=== PATIENT | female | born 1950 | race Hispanic/Latino ===

== ENCOUNTER 2019-10-18 14:58 | Observation (INO) | payer MEDICARE, OTHER ==
[~2019-10-18] VITALS: Ht 157.5 cm; Wt 73.9 kg
--- NOTE | 2019-10-18 15:11 | Emergency Department Note ---
History of Present Illnes History of Present Illness History of Present Illness This is a 69 year old female with non-radiating substernal CP started yesterday. Seen at Dr [facility] yesterday, patient was advised to come to the ED for evaluation. . Historian: Patient, Family Member Arrival Mode: Car History limited by: language barrier Night Filler Required: Yes Onset (how long ago): day(s) Location: substernal Radiation: Reports non-radiation Onset quality: gradual Duration (how long): day(s) Timing of current episode: constant Progression: unchanged Chronicity: new Context: Denies recent illness, Denies recent surgery, Denies recent immobilization, Denies recent travel, Denies trauma/injury, Denies new medications, Denies hx of DVT/PE, Denies non-compliance w/ medications, Denies other Relieving factors: none Exacerbating factors: none Associated symptoms: Reports chest pain Treatments prior to arrival: none Past Medical/Family History Physician Review I have reviewed the patient's past medical and family history. Any updates have been documented here. Past Medical History Recent Fever: No Clinical Suspicion of Infectio: No New/Unexplained Change in Ment: No Past Medical History: Hypertension, Hyperlipedemia Past Surgical History: Cholecysctectomy, Knee Replacement Social History Smoking Cessation: Never Smoker Alcohol Use: None Any Illegal Drug Use: No Review of Systems Review of Systems Constitutional: Reports no symptoms EENTM: Reports no symptoms Cardiovascular: Reports chest pain Respiratory: Reports dyspnea Gastrointestinal: Reports no symptoms Genitourinary: Reports no symptoms Musculoskeletal: Reports no symptoms Integumentary: Reports no symptoms Neurological: Reports no symptoms Psychological: Reports no symptoms Endocrine: Reports no symptoms Hematological/Lymphatic: Reports no symptoms Physical Exam Related Data Allergies: Coded Allergies: No Known Drug Allergies (Verified Allergy, Unknown, 10/18/19) Triage Vital Signs Date Time Temp Pulse Resp B/P (MAP) Pulse Ox O2 Delivery O2 Flow Rate FiO2 10/19/19 12:00 98.7 78 20 116/62 (80) 98 10/19/19 08:45 Room Air Vital signs reviewed: Yes Physical Exam CONSTITUTIONAL Constitutional: Present obese HENT HENT: Present normocephalic, Present atraumatic, Present oropharynx clear/moist, Present nose normal HENT L/R: Present left ext ear normal, Present right ext ear normal EYES Eyes: Reports PERRL, Reports conjunctivae normal NECK Neck: Present ROM normal PULMONARY Pulmonary: Present effort normal, Present breath sounds normal CARDIOVASCULAR Cardiovascular: Present regular rhythm, Present heart sounds normal, Present capillary refill normal, Present normal rate GASTROINTESTINAL Abdominal: Present soft, Present nontender, Present bowel sounds normal GENITOURINARY Genitourinary: Present exam deferred SKIN Skin: Present warm, Present dry MUSCULOSKELETAL Musculoskeletal: Present ROM normal NEUROLOGICAL Neurological: Present alert, Present oriented x 3, Present no gross motor or sensory deficits PSYCHOLOGICAL Psychological: Present mood/affect normal, Present judgement normal Results Laboratory Lab results reviewed: Yes Laboratory comments Laboratory Tests Test 10/18/19 15:34 White Blood Count 10.07 x10e3/uL (4.8-10.8) Red Blood Count 4.23 x10e6/uL (3.6-5.1) Hemoglobin 12.5 g/dL (12.0-16.0) Hematocrit 38.8 % (34.2-44.1) Mean Corpuscular Volume 91.7 fL (81-99) Mean Corpuscular Hemoglobin 29.6 pg (28-32) Mean Corpuscular Hemoglobin Concent 32.2 g/dL (31-35) Red Cell Distribution Width 13.1 % (11.7-14.4) Platelet Count 319 x10e3/uL (140-360) Neutrophils (%) (Auto) 71.1 % (38.7-80.0) Lymphocytes (%) (Auto) 19.6 % (18.0-39.1) Monocytes (%) (Auto) 6.7 % (4.4-11.3) Eosinophils (%) (Auto) 1.0 % (0.0-6.0) Basophils (%) (Auto) 0.7 % (0.0-1.0) Neutrophils # (Auto) 7.2 (2.1-6.9) Lymphocytes # (Auto) 2.0 (1.0-3.2) Monocytes # (Auto) 0.7 (0.2-0.8) Eosinophils # (Auto) 0.1 (0.0-0.4) Basophils # (Auto) 0.1 (0.0-0.1) Absolute Immature Granulocyte (auto 0.09 x10e3/uL (0-0.1) Sodium Level 142 mmol/L (136-145) Potassium Level 4.0 mmol/L (3.5-5.1) Chloride Level 108 mmol/L (98-107) Carbon Dioxide Level 26 mmol/L (22-29) Anion Gap 12.0 mmol/L (8-16) Blood Urea Nitrogen 14 mg/dL (7-26) Creatinine 1.06 mg/dL (0.57-1.11) Estimat Glomerular Filtration Rate 51 ML/MIN (60-) BUN/Creatinine Ratio 13 (6-25) Glucose Level 159 mg/dL (74-118) Calcium Level 9.4 mg/dL (8.4-10.2) Total Bilirubin 0.6 mg/dL (0.2-1.2) Aspartate Amino Transf (AST/SGOT) 18 IU/L (5-34) Alanine Aminotransferase (ALT/SGPT) 24 IU/L (0-55) Alkaline Phosphatase 53 IU/L (40-150) Creatine Kinase 103 IU/L (29-168) Creatine Kinase MB 1.70 ng/mL (0-5.0) Troponin I 0.010 ng/mL (0-0.300) B-Type Natriuretic Peptide 43.0 pg/mL (0-100) Total Protein 7.6 g/dL (6.5-8.1) Albumin 4.0 g/dL (3.5-5.0) Globulin 3.6 g/dL (2.3-3.5) Albumin/Globulin Ratio 1.1 (0.8-2.0) Imaging Imaging results reviewed: Yes Impressions [place] [id number] Patient Name: DONNY AUGUST MR #: [id number] : 1950 Age/Sex: 69/F Req #: [id number] Adm Physician: Ordered by: YAMIL CLINTON DO Report #: [id number] Location: ER Room/Bed: Procedure: [id number] CT/CT CHEST W Exam Date: 10/18/19 Exam Time: 1646 REPORT STATUS: Signed EXAM: CT Chest WITH contrast 10/18/2019 4:46 PM INDICATION: Chest pain concerning for pulmonary embolism. COMPARISON: None TECHNIQUE: Chest was scanned utilizing a multidetector helical scanner from the lung apex through the level of the adrenal glands with administration of IV contrast. Coronal and sagittal reformations were obtained. Routine protocol was performed. IV CONTRAST: 100 mL of Omnipaque 300 COMPLICATIONS: None RADIATION DOSE: Total DLP: 511.66 mGy*cm Estimated effective dose: (DLP x 0.014 x size factor) mSv CTDIvol has been reviewed. It is below the limits set by the Radiation Protocol Committee (RPC). Dose modulation, iterative reconstruction, and/or weight based adjustment of the mA/kV was utilized to reduce the radiation dose to as low as reasonably achievable. FINDINGS: LINES/ TUBES: None. VASCULAR: There is no evidence of pulmonary embolism within the main and segmental pulmonary arteries. Visualization of the subsegmental pulmonary arteries are limited by respiratory motion artifact. The main pulmonary artery has normal caliber measuring 3.1 cm. LUNGS/AIRWAYS/PLEURA: The central airways are patent and the trachea is midline. There is bibasilar atelectasis. No focal consolidation, pleural effusion or pneumothorax. HEART AND MEDIASTINUM: The thyroid gland is normal. No mediastinal, hilar or axillary lymphadenopathy. The heart is normal in size. There is pericardial thickening particularly on the left measuring up to 1.4 cm, compatible with pericardial effusion. UPPER ABDOMEN: The liver is diffusely hypodense, compatible with hepatic steatosis. Status post cholecystectomy. The remainder of the imaged abdomen is unremarkable BONES: There is multilevel degenerative disease of the spine with no suspicious osteoblastic or osteoblastic lesions. No acute fracture or dislocation. SOFT TISSUES: Unremarkable. IMPRESSION: 1. No evidence of pulmonary embolism. No focal consolidation, pleural effusion or pneumothorax. 2. Pericardial effusion of indeterminate etiology. 3. Hepatic steatosis. Signed by: Iesha Bishop MD on 10/18/2019 5:24 PM Dictated By: IESHA BISHOP MD 23 Transcribed By: JOVANY on 10/18/191723 COPY TO: YAMIL CLINTON DO~ Procedures 12 Lead ECG Interpretation ECG Interpretation : ECG: ECG 1 Night Filler: Interpreted by ED physician Date: Oct 18, 2019 Time: 15:14 Prior ECG tracings: reviewed Rhythm: sinus rhythm Conduction: complete RBBB ST segments normal: Yes T wave inversion: V2, V3, V4 T waves flattening: V5, V6 Assessment & Plan Medical Decision Making MDM 69 yof presents with CP . ACS, PE, costocondritis, Chest wall pain, and pneumothorax considered. labs, imaging and EKG reviewed . Plan to Assessment & Plan Final Impression: (1) Chest pain (2) Pericardial effusion Depart Disposition: ADMITTED Last Vital Signs Date Time Temp Pulse Resp B/P (MAP) Pulse Ox O2 Delivery O2 Flow Rate FiO2 10/19/19 12:00 98.7 78 20 116/62 (80) 98 10/19/19 08:45 Room Air Home Meds Reported Medications Quetiapine Fumarate (Quetiapine Fumarate ER) 50 Mg Tab.er.24h, 50 MG PO DAILY 10/18/19 Hydrochlorothiazide (HYDROCHLOROTHIAZIDE) 25 Mg Tablet, 12.5 MG PO DAILY, #30 TAB 10/18/19 Losartan Potassium (LOSARTAN POTASSIUM) 100 Mg Tablet, 100 MG PO DAILY, TAB 10/18/19 Fenofibrate Nanocrystallized (FENOFIBRATE) 145 Mg Tablet, 145 MG PO DAILY 10/18/19 Amlodipine Besylate (AMLODIPINE BESYLATE) 10 Mg Tablet, 10 MG PO DAILY, #30 TAB 10/18/19 Medications in the ED Aspirin 81 mg PRN ONCE PO ; Start 10/18/19 at 15:15; Stop 10/18/19 at 15:16; Status UNV YAMIL CLINTON DO Oct 18, 2019 15:11
[2019-10-18] MEDS ORDERED: ASPIRIN 81 MG CHEW TAB PO ONE (15:15)
[2019-10-18 15:45] LABS: BASOPHILS # (AUTO) 0.1 (0.0-0.1); BASOPHILS % 0.7 % (0.0-1.0); EOSINOPHILS # (AUTO) 0.1 (0.0-0.4); HEMATOCRIT 38.8 % (34.2-44.1); HEMOGLOBIN 12.5 g/dL (12.0-16.0); LYMPHOCYTES % 19.6 % (18.0-39.1); MEAN CORPUSCULAR HEMOGLOBIN 29.6 pg (28-32); MEAN CORPUSCULAR HGB CONC 32.2 g/dL (31-35); MEAN CORPUSCULAR VOLUME 91.7 fL (81-99); MONOCYTES # (AUTO) 0.7 (0.2-0.8); MONOCYTES % 6.7 % (4.4-11.3); NEUTROPHILS # (AUTO) 7.2 (2.1-6.9); NEUTROPHILS % 71.1 % (38.7-80.0); PLATELET COUNT 319 x10e3/uL (140-360); RED BLOOD COUNT 4.23 x10e6/uL (3.6-5.1); RED CELL DISTRIBUTION WIDTH 13.1 % (11.7-14.4)
[2019-10-18 16:00] LABS: ALBUMIN/GLOBULIN RATIO 1.1 (0.8-2.0); CALCIUM 9.4 mg/dL (8.4-10.2); CREATININE, SERUM 1.06 mg/dL (0.57-1.11)
[2019-10-18 16:06] LABS: CREATINE KINASE MB 1.7 ng/mL (0-5.0)
[2019-10-18] MEDS ORDERED: SODIUM CHLORIDE 0.9% 50ML 50 ML ONE (16:38)
[2019-10-18] MEDS ORDERED: IOPAMIDOL 370 MG/ML 200 ML INFUS..BTL INJ ONE (16:38)
[2019-10-18] MEDS ORDERED: SODIUM CHLORIDE 0.9% 1000ML 1,000 ML IV STA (16:49)
[2019-10-18] MEDS ORDERED: MORPHINE SULFATE INJ 4 MG/ML INJ 1ML IV PRN (17:00)
[2019-10-18] MEDS ORDERED: ONDANSETRON HCL INJ 2MG/ML 2ML 2 MG/ML VIAL IV PRN (17:00)
--- NOTE | 2019-10-18 17:27 | Diagnostic Imaging Report ---
EXAM: CT Chest WITH contrast 10/18/2019 4:46 PM INDICATION: Chest pain concerning for pulmonary embolism. COMPARISON: None TECHNIQUE: Chest was scanned utilizing a multidetector helical scanner from the lung apex through the level of the adrenal glands with administration of IV contrast. Coronal and sagittal reformations were obtained. Routine protocol was performed. IV CONTRAST: 100 mL of Omnipaque 300 COMPLICATIONS: None RADIATION DOSE: Total DLP: 511.66 mGy*cm Estimated effective dose: (DLP x 0.014 x size factor) mSv CTDIvol has been reviewed. It is below the limits set by the Radiation Protocol Committee (RPC). Dose modulation, iterative reconstruction, and/or weight based adjustment of the mA/kV was utilized to reduce the radiation dose to as low as reasonably achievable. FINDINGS: LINES/ TUBES: None. VASCULAR: There is no evidence of pulmonary embolism within the main and segmental pulmonary arteries. Visualization of the subsegmental pulmonary arteries are limited by respiratory motion artifact. The main pulmonary artery has normal caliber measuring 3.1 cm. LUNGS/AIRWAYS/PLEURA: The central airways are patent and the trachea is midline. There is bibasilar atelectasis. No focal consolidation, pleural effusion or pneumothorax. HEART AND MEDIASTINUM: The thyroid gland is normal. No mediastinal, hilar or axillary lymphadenopathy. The heart is normal in size. There is pericardial thickening particularly on the left measuring up to 1.4 cm, compatible with pericardial effusion. UPPER ABDOMEN: The liver is diffusely hypodense, compatible with hepatic steatosis. Status post cholecystectomy. The remainder of the imaged abdomen is unremarkable BONES: There is multilevel degenerative disease of the spine with no suspicious osteoblastic or osteoblastic lesions. No acute fracture or dislocation. SOFT TISSUES: Unremarkable. IMPRESSION: 1. No evidence of pulmonary embolism. No focal consolidation, pleural effusion or pneumothorax. 2. Pericardial effusion of indeterminate etiology. 3. Hepatic steatosis. Signed by: Jose Martin Cannon MD on 10/18/2019 5:24 PM
--- NOTE | 2019-10-18 19:09 | NUR ---
2nd attempt at calling report performed.
[2019-10-18] MEDS ORDERED: ASPIRIN 81 MG CHEW TAB ONE (19:45)
[2019-10-18 20:30] VITALS: BP 117/58
[2019-10-18 20:38] VITALS: BP 112/58
--- NOTE | 2019-10-18 20:49 | NUR ---
Patient received via stretcher from ER. AAO x 3. Patient had no complaints of pain. Respirations even and non-labored. Admission history obtained. Initial physical assessment performed. Telemetry in place. Patient oriented to room, call light and plan of care. Patient instructed to call for assistance when needed. Call light within reach.
[2019-10-18 21:00] VITALS: BP 112/58
--- NOTE | 2019-10-18 21:00 | NUR ---
Dr. Alejandro Devries paged regarding "Routine Consult". Reason: Chest Pain. Awaiting call back.
[2019-10-18] MEDS ORDERED: ZOLPIDEM TARTRATE 5 MG TAB PO PRN (22:15)
[2019-10-18] MEDS ORDERED: DOCUSATE SODIUM 100 MG CAP PO PRN (22:15)
[2019-10-18] MEDS ORDERED: ACETAMINOPHEN 325 MG TAB PO PRN (22:15)
[2019-10-18 22:26] LABS: CHOL/HDL RATIO 4.9 (3.0-3.6)
[2019-10-18] MEDS ORDERED: QUETIAPINE FUMA50 M1 PO (22:53)
[2019-10-18] MEDS ORDERED: AMLODIPINE BESY10 MG PO (22:53)
[2019-10-18] MEDS ORDERED: HYDROCHLOROTHIA25 MG PO (22:53)
[2019-10-18] MEDS ORDERED: LOSARTAN POTAS100 MG PO (22:53)
[2019-10-18] MEDS ORDERED: FENOFIBRATE145 MG PO (22:53)
--- NOTE | 2019-10-18 23:25 | NUR ---
Blood specimen sent to lab for analysis of cardiac enzymes.
[2019-10-19] VITALS (8 sets, daily range): BP systolic 110–125; BP diastolic 50–76
[2019-10-19 00:17] LABS: CREATINE KINASE MB 1.5 ng/mL (0-5.0)
--- NOTE | 2019-10-19 05:30 | NUR ---
H&P cc: chest pain HPI: 69yoF, PCP , developed chestpain in substernal region for 10 days; no sob/MCMULLEN/fever/N/V/D?. PMH: HTN, HTG, PSHx: cholecystecotmy, left knee Allergies; see emr Fh/SH; ; no cigs Meds; see MAR ROS: no f/c/s/N/V/D/MCMULLEN/sob/skin rash/dizziness/confusion/vision changes v/s; revd PE tired appearing anicteric ns1s2 mod bs soft nt nd; no chest wall tenderness no edema skin dry n. affect a&ox3; ferguson labs/meds revd A/P: Chest pain- CT shows pericardial effusion Pericardial effusion- check echo LUPILLO vs CKD- hold ARB PreDM- hba1c 6.4 Overweight- 1/2 portion sizes outpt BMI 29.8- as above Prop; lovenox; pepcid dispo: f/u cardio; f/u echo. Davey Lopez MD, PHD.
[2019-10-19 05:55] LABS: BASOPHILS # (AUTO) 0.1 (0.0-0.1); BASOPHILS % 0.6 % (0.0-1.0); EOSINOPHILS # (AUTO) 0.2 (0.0-0.4); EOSINOPHILS % 1.5 % (0.0-6.0); HEMATOCRIT 38.7 % (34.2-44.1); HEMOGLOBIN 12.4 g/dL (12.0-16.0); LYMPHOCYTES # (AUTO) 3.4 (1.0-3.2); LYMPHOCYTES % 27.8 % (18.0-39.1); MEAN CORPUSCULAR HEMOGLOBIN 29.5 pg (28-32); MEAN CORPUSCULAR VOLUME 91.9 fL (81-99); MONOCYTES # (AUTO) 0.7 (0.2-0.8); MONOCYTES % 5.7 % (4.4-11.3); NEUTROPHILS # (AUTO) 7.9 (2.1-6.9); NEUTROPHILS % 63.7 % (38.7-80.0); PLATELET COUNT 334 x10e3/uL (140-360); RED BLOOD COUNT 4.21 x10e6/uL (3.6-5.1); RED CELL DISTRIBUTION WIDTH 12.8 % (11.7-14.4)
[2019-10-19 06:27] LABS: ALANINE AMINOTRANSFERASE 21 IU/L (0-55); ALBUMIN 3.8 g/dL (3.5-5.0); ALBUMIN/GLOBULIN RATIO 1.2 (0.8-2.0); ALKALINE PHOSPHATASE 52 IU/L (40-150); ANION GAP 11.6 mmol/L (8-16); BLOOD UREA NITROGEN 14 mg/dL (7-26); BUN/CREATININE RATIO 16 (6-25); CARBON DIOXIDE 23 mmol/L (22-29); CHLORIDE 108 mmol/L (98-107); CREATININE, SERUM 0.89 mg/dL (0.57-1.11); EST GLOMERULAR FILTRATION RATE > 60 ML/MIN (60-); GLUCOSE 126 mg/dL (74-118); POTASSIUM 3.6 mmol/L (3.5-5.1); SODIUM 139 mmol/L (136-145)
[2019-10-19 06:52] LABS: CREATINE KINASE 88 IU/L (29-168)
--- NOTE | 2019-10-19 07:00 | NUR ---
Patient resting comfortably. No acute distress noted. Walking rounds done. Bedside report given to oncoming nurse.
[2019-10-19] MEDS: FAMOTIDINE 20 MG TAB PO SCH ×2 (07:30→16:30)
[2019-10-19] MEDS ORDERED: QUETIAPINE FUMARATE 50 MG PO SCH (09:00)
[2019-10-19] MEDS: ASPIRIN 325 MG TAB PO SCH (09:24)
[2019-10-19] MEDS: QUETIAPINE FUMARATE 25 MG TAB PO SCH (09:25)
[2019-10-19] MEDS: AMLODIPINE BESYLATE 10 MG TAB PO SCH (09:25)
[2019-10-19] MEDS: FENOFIBRATE 145 MG TAB PO SCH (09:25)
[2019-10-19] MEDS: ENOXAPARIN SOD INJ 40 MG/0.4 ML SYR SC SCH (16:44)
--- NOTE | 2019-10-19 19:18 | NUR ---
report given to oncoming nurse walking rounds complete.
--- NOTE | 2019-10-19 22:46 | NUR ---
Cardiology Consult Dictation# [id number]
[2019-10-20] VITALS (7 sets, daily range): BP systolic 100–138; BP diastolic 55–69
--- NOTE | 2019-10-20 03:42 | Consultation ---
DATE OF CONSULTATION: 10/19/2019 Cardiology Consultation REQUESTING PHYSICIAN: Davey Lopez MD. REASON FOR CONSULTATION: Chest pain. HISTORY OF PRESENT ILLNESS: This is a 69-year-old woman with history of hypertension and hyperlipidemia, who presents with complaints of chest pain for the last 10 days. She describes it as central substernal pain up to 8/10 in severity. The pain did not radiate and was not associated with shortness of breath, nausea, or diaphoresis. The pain would occur off and on, lasting approximately minutes, occurring approximately twice a day. She did not notice any aggravating factors, but noted it was better after being given aspirin in the ER. She denies any edema, orthopnea, or PND. Denies any fever, chills, sick contacts, or recent travel. In the ER, CT of the chest did not reveal any evidence of PE, but she was found to have a pericardial effusion. Cardiology is consulted for further evaluation. REVIEW OF SYSTEMS: Negative except as per HPI. PAST MEDICAL HISTORY: 1. Hypertension. 2. Hyperlipidemia. PAST SURGICAL HISTORY: 1. Cholecystectomy. 2. Tubal ligation. 3. Knee surgery. ALLERGIES: PLEASE SEE EMR. MEDICATIONS: Please see medication list. SOCIAL HISTORY: No tobacco, alcohol, or illicit drugs. FAMILY HISTORY: Pertinent for father with myocardial infarction. PHYSICAL EXAMINATION: VITAL SIGNS: Temperature 99.4 degrees, pulse 65, respiratory rate 20, blood pressure 112/57, and oxygen saturation 97% on room air. GENERAL: Elderly woman, in no acute distress. Awake and alert. HEENT: Normocephalic, atraumatic. Pupils equal. No scleral icterus. NECK: Supple. No thyroid or cervical lymphadenopathy. No carotid bruits. LUNGS: Clear to auscultation bilaterally. No wheezes or crackles. CARDIOVASCULAR: Normal rate, regular rhythm. No murmur. Normal S1 and S2. ABDOMEN: Soft, nontender. EXTREMITIES: No edema. NEUROLOGIC: Nonfocal exam. LABORATORY DATA: Sodium 139, potassium 3.6, chloride 108, CO2 of 23, BUN 14, and creatinine 0.89. Troponin less than 0.001. Triglycerides 196, cholesterol 187, LDL 110, HDL 38. WBC 12.34, hemoglobin 12.4, hematocrit 38.7, and platelets 334. EKG; normal sinus rhythm, right bundle-branch block. IMPRESSION: 1. Chest pain. 2. Pericardial effusion. 3. Acute kidney injury, improved. 4. Hypertension. 5. Hyperlipidemia. 6. Diabetes mellitus. RECOMMENDATIONS: The patient ruled out for myocardial infarction with serial cardiac biomarkers. Echocardiogram was reviewed. The patient does have a small pericardial effusion near the left ventricle, but there is normal LVEF with impaired relaxation. No significant valvular abnormalities. CRP is ordered and is pending. Blood pressure is acceptable for her age. Continue current cardiac medications. COVID-19 test is pending. If negative, plan to proceed with nuclear stress test in the morning. Otherwise, the patient can be discharged to follow up with outpatient ischemic evaluation. Thank you for this consult. We will continue to follow. Sandra Hearn MD ABS/MODL /[id number]
--- NOTE | 2019-10-20 06:34 | NUR ---
IM- progress note O/N see below ROS: no f/c/s/N/V/D/MCMULLEN/sob/skin rash/dizziness/confusion/vision changes v/s; revd PE tired appearing anicteric ns1s2 mod bs soft nt nd; no chest wall tenderness no edema skin dry n. affect a&ox3; ferguson labs/meds revd A/P: Chest pain- CT shows pericardial effusion Pericardial effusion- check echo LUPILLO vs CKD- hold ARB PreDM- hba1c 6.4 Overweight- 1/2 portion sizes outpt BMI 29.8- as above Prop; lovenox; pepcid dispo: f/u cardio; f/u echo. 7-15 f/u stress test and echo Davey Lopez MD, PHD.
--- NOTE | 2019-10-20 07:00 | NUR ---
Waking rounds done. Bed-side report given to oncoming nurse. No acute distress noted. Call light within reach.
[2019-10-20] MEDS: FAMOTIDINE 20 MG TAB PO SCH ×3 (07:30→17:56)
[2019-10-20] MEDS: AMLODIPINE BESYLATE 10 MG TAB PO SCH (08:51)
[2019-10-20] MEDS: ASPIRIN 325 MG TAB PO SCH (08:51)
[2019-10-20] MEDS: FENOFIBRATE 145 MG TAB PO SCH (08:52)
[2019-10-20] MEDS: QUETIAPINE FUMARATE 25 MG TAB PO SCH (08:52)
[2019-10-20] MEDS ORDERED: ONDANSETRON HCL 4 MG ORAL DISINTEGRATING TAB PO PRN (13:15)
[2019-10-20] MEDS ORDERED: REGADENOSON 0.4 MG/5 ML SYR IV ONE (14:57)
--- NOTE | 2019-10-20 15:19 | Progress Note ---
DATE: 10/20/2019 Cardiology Progress note SUBJECTIVE: The patient denies chest pain or shortness of breath. She is pending stress test today. OBJECTIVE: VITAL SIGNS: Temperature 98.4 degrees, pulse 63, respiratory rate 20, blood pressure 138/65, and oxygen saturation 97% on room air. GENERAL: An elderly woman, in no acute distress. Awake and alert. LUNGS: Clear to auscultation bilaterally. No wheezes or crackles. CARDIOVASCULAR: Normal rate. Regular rhythm. No murmur. Normal S1, S2. ABDOMEN: Soft, nontender. EXTREMITIES: No edema. CARDIAC MEDICATIONS: Enoxaparin 40 mg subcu daily, fenofibrate 145 mg p.o. daily, amlodipine 10 mg p.o. daily, and aspirin 81 mg p.o. daily. LABORATORY DATA: None today. TELEMETRY: Telemetry was personally reviewed and interpreted, revealing sinus bradycardia. IMPRESSION: 1. Chest pain. 2. Pericardial effusion. 3. Acute kidney injury, improved. 4. Hypertension. 5. Hyperlipidemia. 6. Diabetes mellitus. RECOMMENDATIONS: The patient is ruled out for myocardial infarction with serial cardiac biomarkers. Echocardiogram has normal LVEF with impaired relaxation. No significant valvular abnormalities are present, but she does have a small pericardial effusion near the left ventricle. CRP has been ordered and remains pending. Blood pressure is acceptable for age. Plan to proceed with ischemic evaluation today once isotope is available. Thank you for this consult. We will continue to follow. Sandra Hearn MD ABS/MODL /[id number]
--- NOTE | 2019-10-20 17:55 | NUR ---
Spoke with Dr. Hearn and says that from her standpoint the patient is okay to discharge.
[2019-10-20] MEDS: ENOXAPARIN SOD INJ 40 MG/0.4 ML SYR SC SCH (17:57)
--- NOTE | 2019-10-20 19:15 | NUR ---
Patient received lying in bed. AAO x 3. Patient had no complaints of pain. Respirations even and non-labored. Safety measures in place. Patient instructed to call for assistance when needed. Call light within reach.
[2019-10-21] VITALS: BP 102/50
[2019-10-21 04:00] VITALS: BP 123/64
--- NOTE | 2019-10-21 06:23 | NUR ---
D/C summary Principal Dx: Atypical Chest pain- CT shows pericardial effusion Pericardial effusion- check echo LUPILLO - resolved; PreDM- hba1c 6.4 Overweight- 1/2 portion sizes outpt BMI 29.8- as above SEcondary Ddx: Prop; lovenox; pepcid dispo: f/u cardio; f/u echo. 7-15 f/u stress test and echo 7-16 stress test negative; echo normal; asymptomatic; d/c home and f/u with cardiology D/c home stable f/u pcp 2 days and cardiology 1 week d/c>35mins Davey Lopez MD, PHD.
--- NOTE | 2019-10-21 06:30 | NUR ---
Dr. Lopez here to see patient. However, he stated there are no notes from MD confirming cardiac clearance. Dr. Connor paged. Awaiting call back
[2019-10-21] MEDS ORDERED: ASPIRIN325 MG PO (06:38)
--- NOTE | 2019-10-21 07:00 | NUR ---
Walking rounds done. Patient resting comfortably. Shift report given to oncoming nurse.
[2019-10-21 07:45] VITALS: BP 121/61
[2019-10-21 09:35] VITALS: BP 121/61
[2019-10-21] MEDS: QUETIAPINE FUMARATE 25 MG TAB PO SCH (11:09)
[2019-10-21] MEDS: FAMOTIDINE 20 MG TAB PO SCH (11:09)
[2019-10-21] MEDS: AMLODIPINE BESYLATE 10 MG TAB PO SCH (11:09)
[2019-10-21] MEDS: ASPIRIN 325 MG TAB PO SCH (11:09)
[2019-10-21] MEDS: FENOFIBRATE 145 MG TAB PO SCH (11:10)
[2019-10-21 11:35] VITALS: BP 124/63
--- NOTE | 2019-10-21 14:00 | NUR ---
Discharge education teaching given with the daughter on the phone. Verbalized understanding. Discharge packet given. Respiration even and unlabored . PIV to left AC removed, catheter tip intact, no bleeding noted. Awaiting for parts picker.
--- NOTE | 2019-10-21 14:10 | Progress Note ---
DATE: 10/21/2019 Cardiology Progress Note SUBJECTIVE: The patient denies chest pain or shortness of breath. OBJECTIVE: VITAL SIGNS: Temperature 98.3 degrees, pulse 87, respiratory rate 20, blood pressure 112/62, and oxygen saturation 95%. GENERAL: Awake, alert, in no distress. LUNGS: Clear to auscultation bilaterally. No wheezes or crackles. HEART: Normal rate, regular rhythm. No murmur. Normal S1, S2. ABDOMEN: Soft, nontender. EXTREMITIES: No edema. NEURO: Nonfocal exam. CARDIAC MEDICATIONS: Fenofibrate 145 mg p.o. daily, amlodipine 10 mg p.o. daily, aspirin 81 mg p.o. daily, and enoxaparin 40 mg subcu daily. LABORATORY DATA: None today. IMPRESSION: 1. Chest pain. 2. Pericardial effusion. 3. Acute kidney injury, improved. 4. Hypertension. 5. Hyperlipidemia. 6. Diabetes mellitus. RECOMMENDATIONS: The patient is ruled out for myocardial function on serial cardiac biomarkers. Echocardiogram demonstrate normal LVEF with impaired relaxation, no significant valvular abnormalities were present, but a small pericardial fusion was noted near the left ventricle. CRP was normal. Check TSH. Nuclear stress test was performed without evidence of ischemia. No further cardiac evaluation is indicated at this time. Continue current cardiac medications. The patient can be discharged from a cardiac standpoint. Thank you for this consult. We will continue to follow. Sandra Hearn MD ABS/MODL /[id number]
--- NOTE | 2019-10-21 14:25 | Myoview Stress Test ---
DATE OF STUDY: 10/20/2019 09:53:00 Stress Test - Treadmill ONLY PROCEDURE TITLE: Rest/stress single isotope SPECT imaging with pharmacologic stress and gated SPECT imaging. INDICATION: Chest pain. PROCEDURE IN DETAIL: Pharmacologic stress testing was performed with regadenoson per protocol. The heart rate was 79 beats per minute at rest and increased to 100 beats per minute during the regadenoson infusion. The resting blood pressure was 140/65 mmHg and decreased to 131/53 mmHg, which is a normal response. The resting electrocardiogram demonstrated normal sinus rhythm with right bundle-branch block. There were no ST-segment changes, suggestive of myocardial ischemia. Myocardial perfusion imaging was performed at rest, following the injection of 11 mCi of tetrofosmin. At peak pharmacologic effect, the patient was injected with 33 mCi of tetrofosmin. Gated post-stress tomographic imaging was performed. FINDINGS: The overall quality of study is fair. Left ventricular cavity is noted to be normal size on the rest and stress studies. SPECT images demonstrate homogeneous tracer distribution throughout the myocardium. Gated SPECT imaging reveals normal myocardial thickening and wall motion. The left ventricular ejection fraction was calculated to be greater than 70%. IMPRESSION: Myocardial perfusion imaging is normal. Overall, left ventricular systolic function was normal without regional wall motion abnormalities. Sandra Hearn MD ABS/MODL /[id number]
--- NOTE | 2019-10-21 14:26 | NUR ---
Patient transported via wheelchair with all personal belongings taken.
== END 2019-10-21 14:26 | disposition home or self-care (01) ==
LOC: ER 15:20 → ERHOLD 17:02 → MED/SURG2 20:05
PROVIDERS: ADMIT Internal Medicine; ATTEND Internal Medicine
DX: R07.89 Other chest pain (principal); I31.3 Pericardial effusion (noninflammatory); I10 Essential (primary) hypertension; E78.5 Hyperlipidemia, unspecified; E66.9 Obesity, unspecified; Z90.49 Acquired absence of other specified parts of digestive tract; Z11.59 Encounter for screening for other viral diseases; Z96.652 Presence of left artificial knee joint; R73.03 Prediabetes; Z68.29 Body mass index [BMI] 29.0-29.9, adult; N17.9 Acute kidney failure, unspecified
CPT/HCPCS: 36415 ×2; 71260; 78452; 80053 ×2; 80061; 82550 ×2; 82553 ×2; 83036; 83880; 84484 ×2; 85025 ×2; 85379; 86140; 93005; 93017; 93306; 99284; A9502; G0378 ×4; J1650 ×2; J2785; Q9967; U0002

== ENCOUNTER 2023-05-30 21:16 | Inpatient (IN) | payer MEDICARE ==
[~2023-05-30] VITALS: Ht 157.5 cm; Wt 73.9 kg
[~2023-05-30 21:16] MED LIST: AMLODIPINE BESY10 MG PO; ASPIRIN325 MG PO; FENOFIBRATE145 MG PO; HYDROCHLOROTHIA25 MG PO; LOSARTAN POTAS100 MG PO; QUETIAPINE FUMA50 M1 PO
[2023-05-30] MEDS: SODIUM CHLORIDE 0.9% 1000ML 1,000 ML IV STA (22:29)
[2023-05-30 22:38] LABS: BASOPHILS # (AUTO) 0.1 (0.0-0.1); BASOPHILS % 0.4 % (0.0-1.0); EOSINOPHILS # (AUTO) 0.1 (0.0-0.4); EOSINOPHILS % 0.8 % (0.0-6.0); HEMATOCRIT 36.7 % (34.2-44.1); HEMOGLOBIN 11.9 g/dL (12.0-16.0); LYMPHOCYTES # (AUTO) 2.3 (1.0-3.2); LYMPHOCYTES % 17.4 % (18.0-39.1); MEAN CORPUSCULAR HEMOGLOBIN 29.8 pg (28-32); MEAN CORPUSCULAR HGB CONC 32.4 g/dL (31-35); MONOCYTES % 7.9 % (4.4-11.3); NEUTROPHILS # (AUTO) 9.6 (2.1-6.9); NEUTROPHILS % 72.7 % (38.7-80.0); PLATELET COUNT 271 x10e3/uL (140-360); RED BLOOD COUNT 3.99 x10e6/uL (3.6-5.1); RED CELL DISTRIBUTION WIDTH 13.2 % (11.7-14.4); WHITE BLOOD COUNT 13.12 x10e3/uL (4.8-10.8)
[2023-05-30 22:51] LABS: INFLUENZAE A&B ANTIGEN (RAPID) NEGATIVE (NEGATIVE); STREPTOCOCCUS GRP A ANTIGEN POSITIVE (NEGATIVE)
[2023-05-30 22:59] LABS: ALBUMIN 3.4 g/dL (3.5-5.0); ALBUMIN/GLOBULIN RATIO 1.4 (0.8-2.0); ANION GAP 24.2 mmol/L (8-16); BILIRUBIN,TOTAL 1.8 mg/dL (0.2-1.2); CREATININE, SERUM 7.31 mg/dL (0.57-1.11); TOTAL PROTEIN 5.9 g/dL (6.5-8.1)
[2023-05-30 23:06] LABS: POTASSIUM 5.2 mmol/L (3.5-5.1)
[2023-05-30 23:08] LABS: TROPONIN I 0.001 ng/mL (0-0.300)
[2023-05-30 23:50] VITALS: PULSE 65; RESP 16; O2SAT 96
[2023-05-31] VITALS (11 sets, daily range): BP systolic 99–141; BP diastolic 45–68; PULSE 58–68; RESP 16–20; TEMP 97.5–98.3; O2SAT 98–100
[2023-05-31] MEDS: SODIUM CHLORIDE 0.9% 1000ML 1,000 ML IV SCH (00:30)
[2023-05-31] MEDS: DEXTROSE 50% SYRINGE 50 ML IV STA (00:31)
[2023-05-31] MEDS: INSULIN REGULAR, HUMAN 100 UNIT/1 ML IV STA (00:32)
[2023-05-31 00:58] LABS: BILIRUBIN,URINE NEGATIVE (NEGATIVE); CLARITY,URINE CLOUDY (CLEAR); COLOR,URINE YELLOW (YELLOW); GLUCOSE, URINE NEGATIVE (NEGATIVE); KETONES,URINE NEGATIVE (NEGATIVE); LEUKOCYTE ESTERASE ,URINE NEGATIVE (NEGATIVE); NITRITE,URINE NEGATIVE (NEGATIVE); PH,URINE 5.5 (5 - 7); PROTEIN,URINE DIPSTICK 2+ (NEGATIVE); URINE UROBILINOGEN 0.2 mg/dL (0.2 - 1)
[2023-05-31 01:12] LABS: AMORPHOUS SEDIMENT,URINE MANY (FEW); BACTERIA,URINE MANY /HPF; EPITHELIAL CELLS,URINE MODERATE /LPF; RENAL EPITHELIAL CELLS,URINE MANY; TRANSITIONAL EPI CELLS,URINE MANY
[2023-05-31] MEDS ORDERED: LISINOPRIL10 MG PO (02:11)
[2023-05-31] MEDS ORDERED: HYDROXYZINE PAM25 MG PO (02:11)
[2023-05-31] MEDS ORDERED: NEURONTIN100 MG PO (02:11)
[2023-05-31] MEDS ORDERED: VERAPAMIL ER120 MG PO (02:11)
[2023-05-31] MEDS ORDERED: ATORVASTATIN CA10 MG PO (02:11)
[2023-05-31] MEDS ORDERED: METFORMIN HCL500 MG PO (02:11)
[2023-05-31] MEDS: FUROSEMIDE INJ 10 MG/ML 4 ML VIAL IV ONE (06:38)
[2023-05-31 06:55] LABS: BASOPHILS % 0.3 % (0.0-1.0); EOSINOPHILS # (AUTO) 0.1 (0.0-0.4); EOSINOPHILS % 0.5 % (0.0-6.0); HEMATOCRIT 35.9 % (34.2-44.1); HEMOGLOBIN 11.3 g/dL (12.0-16.0); LYMPHOCYTES # (AUTO) 1.8 (1.0-3.2); LYMPHOCYTES % 15.2 % (18.0-39.1); MEAN CORPUSCULAR HEMOGLOBIN 30.1 pg (28-32); MEAN CORPUSCULAR HGB CONC 31.5 g/dL (31-35); MEAN CORPUSCULAR VOLUME 95.5 fL (81-99); MONOCYTES # (AUTO) 1.1 (0.2-0.8); MONOCYTES % 9.7 % (4.4-11.3); NEUTROPHILS # (AUTO) 8.6 (2.1-6.9); NEUTROPHILS % 73.7 % (38.7-80.0); PLATELET COUNT 216 x10e3/uL (140-360); RED BLOOD COUNT 3.76 x10e6/uL (3.6-5.1); RED CELL DISTRIBUTION WIDTH 13.2 % (11.7-14.4); WHITE BLOOD COUNT 11.73 x10e3/uL (4.8-10.8)
[2023-05-31 07:14] LABS: CREATINE KINASE 105 IU/L (29-168)
[2023-05-31 07:16] LABS: ALBUMIN/GLOBULIN RATIO 1.1 (0.8-2.0); ANION GAP 20.7 mmol/L (8-16); BILIRUBIN,TOTAL 1.3 mg/dL (0.2-1.2); CALCIUM 7.8 mg/dL (8.4-10.2); CREATININE, SERUM 7.81 mg/dL (0.57-1.11); POTASSIUM 4.7 mmol/L (3.5-5.1); TOTAL PROTEIN 5.8 g/dL (6.5-8.1)
[2023-05-31 07:24] LABS: TROPONIN I < 0.001 ng/mL (0-0.300)
[2023-05-31] MEDS: ONDANSETRON HCL INJ 2MG/ML 2ML 2 MG/ML VIAL IV PRN (08:45)
[2023-05-31] MEDS: Morphine 2mg Syringe 2 MG/ML SYR IV PRN (08:45)
[2023-05-31] MEDS ORDERED: SODIUM BICARBONATE 8.4% SYRING 75 ML in SODIUM CHLORIDE 0.45% 1,000 ML IV SCH (11:30)
[2023-05-31] MEDS: METHYLPREDNISOLONE SOD SUCC 1,000 MG/8 ML VIAL IV SCH (13:06)
[2023-05-31] MEDS ORDERED: SODIUM BICARBONATE 8.4% 75 ML in SODIUM CHLORIDE 0.45% 1,000 ML IV SCH (13:15)
[2023-05-31] MEDS: SODIUM BICARBONATE 8.4% 75 ML in SODIUM CHLORIDE 0.45% 1,000 ML IV SCH (13:23)
[2023-05-31] MEDS ORDERED: ALBUTEROL/IPRATROPIUM 3 ML NEB NEB PRN (13:30)
[2023-05-31] MEDS ORDERED: MELATONIN 3 MG TAB PO PRN (13:30)
[2023-05-31] MEDS ORDERED: SIMETHICONE 80 MG CHEW PO PRN (13:30)
[2023-05-31] MEDS ORDERED: DOCUSATE SODIUM 100 MG CAP PO PRN (13:30)
[2023-05-31] MEDS ORDERED: METOPROLOL TARTRATE INJ 1 MG/ML VIAL IV PRN (13:30)
[2023-05-31 16:06] LABS: CREATININE,URINE RANDOM 24.51 mg/dL (47-110)
[2023-05-31] MEDS: ACETAMINOPHEN 325 MG TAB PO PRN (23:45)
[2023-06-01] VITALS (10 sets, daily range): BP systolic 111–173; BP diastolic 55–92; PULSE 55–69; RESP 17–20; TEMP 97.5–98.6; O2SAT 68–100
[2023-06-01 05:58] LABS: BASOPHILS % 0.1 % (0.0-1.0); HEMATOCRIT 32.9 % (34.2-44.1); HEMOGLOBIN 11.6 g/dL (12.0-16.0); LYMPHOCYTES # (AUTO) 0.7 (1.0-3.2); LYMPHOCYTES % 8.8 % (18.0-39.1); MEAN CORPUSCULAR HEMOGLOBIN 30.5 pg (28-32); MEAN CORPUSCULAR HGB CONC 35.3 g/dL (31-35); MEAN CORPUSCULAR VOLUME 86.6 fL (81-99); MONOCYTES # (AUTO) 0.1 (0.2-0.8); NEUTROPHILS # (AUTO) 7.5 (2.1-6.9); NEUTROPHILS % 89.1 % (38.7-80.0); PLATELET COUNT 222 x10e3/uL (140-360); RED CELL DISTRIBUTION WIDTH 12.3 % (11.7-14.4); WHITE BLOOD COUNT 8.39 x10e3/uL (4.8-10.8)
[2023-06-01 06:25] LABS: ALBUMIN 2.8 g/dL (3.5-5.0); ANION GAP 21.9 mmol/L (8-16); BILIRUBIN,TOTAL 0.9 mg/dL (0.2-1.2); CALCIUM 7.1 mg/dL (8.4-10.2); CREATININE, SERUM 9.13 mg/dL (0.57-1.11); MAGNESIUM 1.6 MG/DL (1.3-2.1); PHOSPHORUS 8.6 MG/DL (2.3-4.7); POTASSIUM 4.9 mmol/L (3.5-5.1); TOTAL PROTEIN 5.7 g/dL (6.5-8.1)
[2023-06-01 06:59] LABS: TROPONIN I 0.01 ng/mL (0-0.300)
[2023-06-01] MEDS: SODIUM BICARBONATE 650 MG TAB PO SCH (10:40)
[2023-06-01] MEDS: FUROSEMIDE INJ 10 MG/ML 4 ML VIAL IV ONE (10:40)
[2023-06-01] MEDS: CALCIUM ACETATE 667 MG GELCAP PO SCH (17:12)
[2023-06-02] VITALS (8 sets, daily range): BP systolic 116–150; BP diastolic 52–70; PULSE 52–97; RESP 16–20; TEMP 97.5–98.3; O2SAT 96–100
[2023-06-02 05:36] LABS: BASOPHILS % 0.2 % (0.0-1.0); HEMOGLOBIN 11.8 g/dL (12.0-16.0); LYMPHOCYTES # (AUTO) 1.2 (1.0-3.2); LYMPHOCYTES % 8.4 % (18.0-39.1); MEAN CORPUSCULAR HEMOGLOBIN 29.6 pg (28-32); MEAN CORPUSCULAR HGB CONC 34.7 g/dL (31-35); MEAN CORPUSCULAR VOLUME 85.2 fL (81-99); MONOCYTES # (AUTO) 0.4 (0.2-0.8); MONOCYTES % 2.8 % (4.4-11.3); NEUTROPHILS # (AUTO) 12.5 (2.1-6.9); NEUTROPHILS % 87.5 % (38.7-80.0); PLATELET COUNT 260 x10e3/uL (140-360); RED BLOOD COUNT 3.99 x10e6/uL (3.6-5.1); RED CELL DISTRIBUTION WIDTH 12.3 % (11.7-14.4); WHITE BLOOD COUNT 14.33 x10e3/uL (4.8-10.8)
[2023-06-02 06:08] LABS: ALBUMIN 2.9 g/dL (3.5-5.0); ALBUMIN/GLOBULIN RATIO 0.9 (0.8-2.0); ANION GAP 25.2 mmol/L (8-16); BILIRUBIN,TOTAL 0.7 mg/dL (0.2-1.2); CALCIUM 7.1 mg/dL (8.4-10.2); CREATININE, SERUM 10.75 mg/dL (0.57-1.11); MAGNESIUM 1.8 MG/DL (1.3-2.1); PHOSPHORUS 10.6 MG/DL (2.3-4.7); POTASSIUM 5.2 mmol/L (3.5-5.1)
[2023-06-02] MEDS: SODIUM CHLORIDE 0.9% 250ML 250 ML ONE (08:53)
[2023-06-02] MEDS ORDERED: LIDOCAINE HCL 1% LOCAL INJ 20 ML VIAL ONE (08:59)
[2023-06-02] MEDS ORDERED: SODIUM CHLORIDE 0.9% 250ML 250 ML ONE ×2 (09:00→09:43)
[2023-06-02 09:01] LABS: INR 1.15; PROTHROMBIN TIME 14.9 seconds (11.9-14.5)
[2023-06-02] MEDS ORDERED: MIDAZOLAM HCL 2 MG/2 ML VIAL ONE (09:42)
[2023-06-02] MEDS ORDERED: HEPARIN SOD (PORCINE) 1000 UNIT/ML SDV ONE (09:43)
[2023-06-02] MEDS ORDERED: FENTANYL CITRATE/PF 100MCG/2 ML INJ ONE (09:44)
[2023-06-02] MEDS: METHYLPREDNISOLONE SOD SUCC 500 MG in SODIUM CHLORIDE 0.9% 100 ML IV SCH (10:00)
[2023-06-02] MEDS ORDERED: ONDANSETRON HCL INJ 2MG/ML 2ML 2 MG/ML VIAL ONE (10:57)
[2023-06-02] MEDS ORDERED: MANNITOL 25% 12.5GM/50 ML VIAL IV PRN (11:45)
[2023-06-02] MEDS ORDERED: ONDANSETRON HCL 4 MG ORAL DISINTEGRATING TAB PO PRN (11:45)
[2023-06-02] MEDS ORDERED: HEPARIN SOD (PORCINE) 1000 UNIT/ML SDV IV PRN (11:45)
[2023-06-02] MEDS ORDERED: SODIUM CHLORIDE 0.9% 1000ML 2,000 ML IV PRN (11:45)
[2023-06-02] MEDS: SODIUM CHLORIDE 0.9% 1000ML 2,000 ML ONE (11:50)
[2023-06-03] VITALS (9 sets, daily range): BP systolic 118–157; BP diastolic 56–87; PULSE 50–75; RESP 16–20; TEMP 97.4–98.8; O2SAT 97–99
[2023-06-03 05:51] LABS: BASOPHILS % 0.2 % (0.0-1.0); EOSINOPHILS % 0.1 % (0.0-6.0); HEMATOCRIT 32.6 % (34.2-44.1); HEMOGLOBIN 11.3 g/dL (12.0-16.0); LYMPHOCYTES # (AUTO) 1.7 (1.0-3.2); MEAN CORPUSCULAR HEMOGLOBIN 30.4 pg (28-32); MEAN CORPUSCULAR HGB CONC 34.7 g/dL (31-35); MEAN CORPUSCULAR VOLUME 87.6 fL (81-99); MONOCYTES # (AUTO) 1.9 (0.2-0.8); MONOCYTES % 10.1 % (4.4-11.3); NEUTROPHILS # (AUTO) 14.7 (2.1-6.9); NEUTROPHILS % 79.7 % (38.7-80.0); PLATELET COUNT 275 x10e3/uL (140-360); RED BLOOD COUNT 3.72 x10e6/uL (3.6-5.1); RED CELL DISTRIBUTION WIDTH 12.8 % (11.7-14.4); WHITE BLOOD COUNT 18.38 x10e3/uL (4.8-10.8)
[2023-06-03 06:39] LABS: ANION GAP 23.4 mmol/L (8-16); CALCIUM 7.2 mg/dL (8.4-10.2); CREATININE, SERUM 9.32 mg/dL (0.57-1.11); MAGNESIUM 1.9 MG/DL (1.3-2.1); PHOSPHORUS 8.6 MG/DL (2.3-4.7); POTASSIUM 4.4 mmol/L (3.5-5.1)
[2023-06-03 10:14] LABS: COMPLEMENT C3 124 mg/dL (82-167)
[2023-06-03 10:29] LABS: COMPLEMENT C4 26 mg/dL (12-38)
[2023-06-03] MEDS ORDERED: HEPARIN SOD (PORCINE) 1000 UNIT/ML SDV IV PRN (10:45)
[2023-06-03 16:51] LABS: ANTI DNA DS ANTIBODY <1 IU/mL (0-9)
[2023-06-04] VITALS: BP 147/67; PULSE 60; RESP 20; TEMP 98.6; O2SAT 96
[2023-06-04 04:00] VITALS: BP 148/61; PULSE 50; RESP 20; TEMP 97.8; O2SAT 99
[2023-06-04 06:00] LABS: HEMATOCRIT 30.7 % (34.2-44.1); HEMOGLOBIN 10.8 g/dL (12.0-16.0); MEAN CORPUSCULAR HEMOGLOBIN 29.9 pg (28-32); MEAN CORPUSCULAR HGB CONC 35.2 g/dL (31-35); PLATELET COUNT 235 x10e3/uL (140-360); RED BLOOD COUNT 3.61 x10e6/uL (3.6-5.1); WHITE BLOOD COUNT 11.72 x10e3/uL (4.8-10.8)
[2023-06-04 06:21] LABS: ALBUMIN 2.6 g/dL (3.5-5.0); ALBUMIN/GLOBULIN RATIO 0.9 (0.8-2.0); ANION GAP 18.6 mmol/L (8-16); BILIRUBIN,TOTAL 0.8 mg/dL (0.2-1.2); CALCIUM 7.7 mg/dL (8.4-10.2); CREATININE, SERUM 7.03 mg/dL (0.57-1.11); POTASSIUM 4.6 mmol/L (3.5-5.1); TOTAL PROTEIN 5.5 g/dL (6.5-8.1)
[2023-06-04 08:26] VITALS: BP 138/63; PULSE 53; RESP 18; TEMP 97.8; O2SAT 99
[2023-06-04 10:04] VITALS: BP 138/63; PULSE 53; RESP 18; TEMP 97.8; O2SAT 99
[2023-06-04 11:11] LABS: EOSINOPHILS % (MANUAL) 1 % (0-7); LYMPHOCYTES % (MANUAL) 15 % (19-48); MONOCYTES % (MANUAL) 3 % (3.4-9.0); NEUTROPHILS % (MANUAL) 81 % (40-74); PLATELET ESTIMATE ADEQUATE; PLATELET MORPHOLOGY COMMENT NORMAL; RBC MORPHOLOGY COMMENT NORMAL
[2023-06-04 11:27] LABS: HEPATITIS B CORE AB TOTAL Negative; HEPATITIS B SURFACE AG (P) Negative
[2023-06-04] MEDS: PREDNISONE 20 MG TAB PO SCH (12:25)
[2023-06-04 13:01] VITALS: BP 157/79; PULSE 54; RESP 18; TEMP 97.9; O2SAT 96
[2023-06-04 15:11] LABS: COLOR,URINE YELLOW (YELLOW); LEUKOCYTE ESTERASE ,URINE SMALL (NEGATIVE); PH,URINE 7 (5 - 7)
[2023-06-04 15:12] LABS: BILIRUBIN,URINE NEGATIVE (NEGATIVE); CLARITY,URINE SL CLOUDY (CLEAR); GLUCOSE, URINE NEGATIVE (NEGATIVE); KETONES,URINE NEGATIVE (NEGATIVE); NITRITE,URINE NEGATIVE (NEGATIVE); PROTEIN,URINE DIPSTICK 1+ (NEGATIVE); URINE UROBILINOGEN 0.2 mg/dL (0.2 - 1)
[2023-06-04 15:14] LABS: cANCA TITER <1:20 titer (Neg:<1:20)
[2023-06-04 15:24] LABS: BACTERIA,URINE FEW /HPF
[2023-06-04 15:25] LABS: EPITHELIAL CELLS,URINE FEW /LPF; RENAL EPITHELIAL CELLS,URINE FEW; YEAST,URINE MODERATE
[2023-06-04 20:00] VITALS: BP 158/60; PULSE 60; RESP 18; TEMP 98; O2SAT 98
[2023-06-04 20:42] LABS: ATYPICAL pANCA TITER <1:20 titer (Neg:<1:20); pANCA TITER <1:20 titer (Neg:<1:20)
[2023-06-05] VITALS (7 sets, daily range): BP systolic 145–162; BP diastolic 60–68; PULSE 50–60; RESP 16–18; TEMP 97.3–98.8; O2SAT 98–100
[2023-06-05 06:40] LABS: BASOPHILS % 0.1 % (0.0-1.0); EOSINOPHILS # (AUTO) 0.1 (0.0-0.4); EOSINOPHILS % 0.4 % (0.0-6.0); HEMATOCRIT 30.8 % (34.2-44.1); HEMOGLOBIN 10.1 g/dL (12.0-16.0); LYMPHOCYTES # (AUTO) 1.8 (1.0-3.2); LYMPHOCYTES % 10.3 % (18.0-39.1); MEAN CORPUSCULAR HGB CONC 32.8 g/dL (31-35); MEAN CORPUSCULAR VOLUME 91.4 fL (81-99); MONOCYTES # (AUTO) 1.5 (0.2-0.8); NEUTROPHILS # (AUTO) 13.6 (2.1-6.9); NEUTROPHILS % 79.6 % (38.7-80.0); PLATELET COUNT 255 x10e3/uL (140-360); RED BLOOD COUNT 3.37 x10e6/uL (3.6-5.1); RED CELL DISTRIBUTION WIDTH 12.9 % (11.7-14.4); WHITE BLOOD COUNT 17.03 x10e3/uL (4.8-10.8)
[2023-06-05 07:02] LABS: ANION GAP 12.6 mmol/L (8-16); CALCIUM 8.3 mg/dL (8.4-10.2); CREATININE, SERUM 5.22 mg/dL (0.57-1.11); PHOSPHORUS 4.7 MG/DL (2.3-4.7); POTASSIUM 3.6 mmol/L (3.5-5.1)
[2023-06-06] VITALS (9 sets, daily range): BP systolic 152–165; BP diastolic 64–81; PULSE 52–62; RESP 17–18; TEMP 97.7–98.7; O2SAT 94–99
[2023-06-06 07:04] LABS: HEMATOCRIT 31.9 % (34.2-44.1); HEMOGLOBIN 10.3 g/dL (12.0-16.0); MEAN CORPUSCULAR HEMOGLOBIN 29.8 pg (28-32); MEAN CORPUSCULAR HGB CONC 32.3 g/dL (31-35); MEAN CORPUSCULAR VOLUME 92.2 fL (81-99); PLATELET COUNT 261 x10e3/uL (140-360); RED BLOOD COUNT 3.46 x10e6/uL (3.6-5.1); RED CELL DISTRIBUTION WIDTH 12.9 % (11.7-14.4); WHITE BLOOD COUNT 21.34 x10e3/uL (4.8-10.8)
[2023-06-06 07:24] LABS: ANION GAP 15.3 mmol/L (8-16); CREATININE, SERUM 7.01 mg/dL (0.57-1.11); PHOSPHORUS 4.3 MG/DL (2.3-4.7)
[2023-06-06 07:28] LABS: POTASSIUM 3.3 mmol/L (3.5-5.1)
[2023-06-06 10:09] LABS: EOSINOPHILS % (MANUAL) 1 % (0-7); LYMPHOCYTES % (MANUAL) 10 % (19-48); MONOCYTES % (MANUAL) 5 % (3.4-9.0); NEUTROPHILS % (MANUAL) 80 % (40-74); REACTIVE LYMPHOCYTES 4
[2023-06-06 10:10] LABS: PLATELET ESTIMATE ADEQUATE; PLATELET MORPHOLOGY COMMENT NORMAL; RBC MORPHOLOGY COMMENT NORMAL
[2023-06-06] MEDS: FLUCONAZOLE 100 MG TAB PO SCH (13:12)
[2023-06-06 15:25] LABS: BASOPHILS # (AUTO) 0.1 (0.0-0.1); BASOPHILS % 0.2 % (0.0-1.0); EOSINOPHILS # (AUTO) 1.1 (0.0-0.4); EOSINOPHILS % 4.5 % (0.0-6.0); HEMATOCRIT 33.2 % (34.2-44.1); LYMPHOCYTES # (AUTO) 2.5 (1.0-3.2); LYMPHOCYTES % 10.4 % (18.0-39.1); MEAN CORPUSCULAR HEMOGLOBIN 29.7 pg (28-32); MEAN CORPUSCULAR HGB CONC 33.1 g/dL (31-35); MEAN CORPUSCULAR VOLUME 89.7 fL (81-99); MONOCYTES # (AUTO) 1.8 (0.2-0.8); MONOCYTES % 7.5 % (4.4-11.3); NEUTROPHILS # (AUTO) 18.2 (2.1-6.9); PLATELET COUNT 281 x10e3/uL (140-360); WHITE BLOOD COUNT 24.32 x10e3/uL (4.8-10.8)
[2023-06-07] VITALS (7 sets, daily range): BP systolic 131–164; BP diastolic 52–83; PULSE 60–68; RESP 17–18; TEMP 98.1–98.4; O2SAT 97–100
[2023-06-07 06:42] LABS: ANION GAP 12.8 mmol/L (8-16); CALCIUM 8.1 mg/dL (8.4-10.2); CREATININE, SERUM 4.67 mg/dL (0.57-1.11); POTASSIUM 3.8 mmol/L (3.5-5.1)
[2023-06-07 13:11] LABS: BASOPHILS # (AUTO) 0.1 (0.0-0.1); BASOPHILS % 0.2 % (0.0-1.0); EOSINOPHILS % 4.6 % (0.0-6.0); HEMATOCRIT 31.4 % (34.2-44.1); HEMOGLOBIN 10.1 g/dL (12.0-16.0); LYMPHOCYTES # (AUTO) 2.9 (1.0-3.2); LYMPHOCYTES % 13.7 % (18.0-39.1); MEAN CORPUSCULAR HEMOGLOBIN 29.9 pg (28-32); MEAN CORPUSCULAR HGB CONC 32.2 g/dL (31-35); MEAN CORPUSCULAR VOLUME 92.9 fL (81-99); MONOCYTES # (AUTO) 1.8 (0.2-0.8); MONOCYTES % 8.4 % (4.4-11.3); NEUTROPHILS # (AUTO) 14.9 (2.1-6.9); NEUTROPHILS % 71.5 % (38.7-80.0); PLATELET COUNT 235 x10e3/uL (140-360); RED BLOOD COUNT 3.38 x10e6/uL (3.6-5.1); RED CELL DISTRIBUTION WIDTH 12.9 % (11.7-14.4); WHITE BLOOD COUNT 20.84 x10e3/uL (4.8-10.8)
[2023-06-07 13:32] LABS: ANION GAP 13.8 mmol/L (8-16); CALCIUM 7.7 mg/dL (8.4-10.2); CREATININE, SERUM 5.2 mg/dL (0.57-1.11); POTASSIUM 3.8 mmol/L (3.5-5.1)
[2023-06-08] VITALS: BP 158/58; PULSE 61; RESP 20; TEMP 97.8; O2SAT 97
[2023-06-08 04:00] VITALS: BP 150/63; PULSE 61; RESP 20; TEMP 98.2; O2SAT 96
[2023-06-08 07:43] LABS: HEMATOCRIT 29.1 % (34.2-44.1); HEMOGLOBIN 9.5 g/dL (12.0-16.0); MEAN CORPUSCULAR HEMOGLOBIN 29.7 pg (28-32); MEAN CORPUSCULAR HGB CONC 32.6 g/dL (31-35); MEAN CORPUSCULAR VOLUME 90.9 fL (81-99); PLATELET COUNT 234 x10e3/uL (140-360); RED CELL DISTRIBUTION WIDTH 13.1 % (11.7-14.4); WHITE BLOOD COUNT 20.28 x10e3/uL (4.8-10.8)
[2023-06-08 08:00] VITALS: BP 145/66; PULSE 62; RESP 17; TEMP 98.7; O2SAT 99
[2023-06-08 11:16] LABS: EOSINOPHILS % (MANUAL) 5 % (0-7); LYMPHOCYTES % (MANUAL) 15 % (19-48); MONOCYTES % (MANUAL) 7 % (3.4-9.0); NEUTROPHILS % (MANUAL) 73 % (40-74); PLATELET ESTIMATE ADEQUATE; PLATELET MORPHOLOGY COMMENT NORMAL
[2023-06-08 12:00] VITALS: BP 149/76; PULSE 63; RESP 18; TEMP 97.8; O2SAT 99
[2023-06-08 16:01] VITALS: BP 165/67; PULSE 68; RESP 22; TEMP 98.2; O2SAT 99
[2023-06-08 20:00] VITALS: BP 143/80; PULSE 56; RESP 22; TEMP 98.1; O2SAT 95
[2023-06-09] VITALS: BP 161/68; PULSE 65; RESP 18; TEMP 97.3; O2SAT 95
[2023-06-09 05:32] LABS: HEMOGLOBIN 9.5 g/dL (12.0-16.0); MEAN CORPUSCULAR HEMOGLOBIN 29.6 pg (28-32); MEAN CORPUSCULAR HGB CONC 31.7 g/dL (31-35); MEAN CORPUSCULAR VOLUME 93.5 fL (81-99); PLATELET COUNT 217 x10e3/uL (140-360); RED BLOOD COUNT 3.21 x10e6/uL (3.6-5.1); RED CELL DISTRIBUTION WIDTH 13.1 % (11.7-14.4); WHITE BLOOD COUNT 20.72 x10e3/uL (4.8-10.8)
[2023-06-09 07:31] VITALS: BP 152/63; PULSE 58; RESP 19; TEMP 98.5; O2SAT 98
[2023-06-09 09:09] LABS: ANION GAP 13.9 mmol/L (8-16); CALCIUM 8.1 mg/dL (8.4-10.2); CREATININE, SERUM 7.94 mg/dL (0.57-1.11); POTASSIUM 3.9 mmol/L (3.5-5.1)
[2023-06-09 09:46] LABS: EOSINOPHILS % (MANUAL) 4 % (0-7); LYMPHOCYTES % (MANUAL) 9 % (19-48); MONOCYTES % (MANUAL) 2 % (3.4-9.0); NEUTROPHILS % (MANUAL) 83 % (40-74); PLATELET ESTIMATE ADEQUATE; REACTIVE LYMPHOCYTES 2
[2023-06-09 09:47] LABS: PLATELET MORPHOLOGY COMMENT NORMAL; RBC MORPHOLOGY COMMENT NORMAL
[2023-06-09 11:03] VITALS: BP 159/84; PULSE 61; RESP 17; TEMP 98.5; O2SAT 98
[2023-06-09] MEDS: HYDRALAZINE HCL 25 MG TAB PO SCH (12:00)
[2023-06-09 15:36] VITALS: BP 167/70; PULSE 61; RESP 19; TEMP 97.5; O2SAT 99
[2023-06-09 19:47] VITALS: BP 166/77; PULSE 63; RESP 21; TEMP 98.8; O2SAT 98
[2023-06-09 23:57] VITALS: BP 155/69; PULSE 61; RESP 20; TEMP 98.7; O2SAT 99
[2023-06-10] VITALS (7 sets, daily range): BP systolic 140–164; BP diastolic 59–74; PULSE 61–72; RESP 16–21; TEMP 97–98.7; O2SAT 97–100
[2023-06-10 06:44] LABS: BASOPHILS % 0.3 % (0.0-1.0); EOSINOPHILS # (AUTO) 0.5 (0.0-0.4); EOSINOPHILS % 3.1 % (0.0-6.0); HEMATOCRIT 27.6 % (34.2-44.1); LYMPHOCYTES # (AUTO) 2.1 (1.0-3.2); LYMPHOCYTES % 14.5 % (18.0-39.1); MEAN CORPUSCULAR HEMOGLOBIN 29.8 pg (28-32); MEAN CORPUSCULAR HGB CONC 32.6 g/dL (31-35); MEAN CORPUSCULAR VOLUME 91.4 fL (81-99); MONOCYTES # (AUTO) 1.3 (0.2-0.8); MONOCYTES % 8.8 % (4.4-11.3); NEUTROPHILS # (AUTO) 10.5 (2.1-6.9); NEUTROPHILS % 71.7 % (38.7-80.0); PLATELET COUNT 192 x10e3/uL (140-360); RED BLOOD COUNT 3.02 x10e6/uL (3.6-5.1); RED CELL DISTRIBUTION WIDTH 13.2 % (11.7-14.4); WHITE BLOOD COUNT 14.62 x10e3/uL (4.8-10.8)
[2023-06-10 07:25] LABS: ANION GAP 12.7 mmol/L (8-16); CALCIUM 7.8 mg/dL (8.4-10.2); CREATININE, SERUM 4.72 mg/dL (0.57-1.11); PHOSPHORUS 3.4 MG/DL (2.3-4.7); POTASSIUM 3.7 mmol/L (3.5-5.1)
[2023-06-10] MEDS ORDERED: HEPARIN SOD (PORCINE) 1000 UNIT/ML SDV IV PRN (10:15)
[2023-06-10] MEDS: NIFEDIPINE CR 30 MG TAB PO SCH (13:30)
[2023-06-10] MEDS: METOPROLOL TARTRATE 25 MG TAB PO SCH (13:31)
[2023-06-10] MEDS ORDERED: HYDRALAZINE HCL50 MG PO (22:42)
== END 2023-06-10 21:55 | disposition home or self-care (01) | DRG 674 ==
LOC: ER 21:22 → ERHOLD 23:30 → MED/SURG2 05-31 01:25
PROVIDERS: ADMIT Internal Medicine; ATTEND Internal Medicine
PROC: 0JH63XZ Insertion of Tunneled Vascular Access Device into Chest Subcutaneous Tissue and Fascia, Percutaneous Approach (ICD-10-PCS; principal; 2023-06-02)
PROC: 06H033Z Insertion of Infusion Device into Inferior Vena Cava, Percutaneous Approach (ICD-10-PCS; 2023-06-02)
PROC: B543ZZA Ultrasonography of Right Jugular Veins, Guidance (ICD-10-PCS; 2023-06-02)
PROC: B519ZZA Fluoroscopy of Inferior Vena Cava, Guidance (ICD-10-PCS; 2023-06-02)
PROC: 5A1D70Z Performance of Urinary Filtration, Intermittent, Less than 6 Hours Per Day (ICD-10-PCS; 2023-06-02)
PROC: 0TB13ZX Excision of Left Kidney, Percutaneous Approach, Diagnostic (ICD-10-PCS; 2023-06-02)
DX: N17.0 Acute kidney failure with tubular necrosis (principal); B37.49 Other urogenital candidiasis; E87.1 Hypo-osmolality and hyponatremia; E87.20 Acidosis, unspecified; J02.0 Streptococcal pharyngitis; E78.5 Hyperlipidemia, unspecified; I10 Essential (primary) hypertension; Z96.652 Presence of left artificial knee joint; E87.5 Hyperkalemia; R62.7 Adult failure to thrive; E83.39 Other disorders of phosphorus metabolism; E83.51 Hypocalcemia; D63.8 Anemia in other chronic diseases classified elsewhere; D72.828 Other elevated white blood cell count; N20.0 Calculus of kidney; D72.829 Elevated white blood cell count, unspecified; E11.40 Type 2 diabetes mellitus with diabetic neuropathy, unspecified; K57.30 Diverticulosis of large intestine without perforation or abscess without bleeding; R31.9 Hematuria, unspecified; T38.0X5A Adverse effect of glucocorticoids and synthetic analogues, initial encounter; Z79.890 Hormone replacement therapy; Z79.899 Other long term (current) drug therapy; Z79.82 Long term (current) use of aspirin
CPT/HCPCS: 36415; 36558; 50200; 51700; 71045; 74176; 74470; 76770; 76937; 76942; 77001; 80048; 80053; 81001; 82550; 82570; 82948; 83518; 83605; 83690; 83735; 84100; 84156; 84300; 84484; 85007; 85025; 85027; 85610; 86021; 86160; 86225; 86704; 86706; 87040; 87086; 87340; 87400; 93005; 94799; 99152; 99284; C1769; C1892; J0690; J1644; J1940; J2001; J2150; J2250; J2270; J2405; J2543; J2930; J7030; J7050; J7512; J7799; U0002